=== PATIENT | male | born 1940 | race Caucasian/White ===

== ENCOUNTER → 2018-05-15 | Day surgery (SDC) | payer MEDICARE ==
[~2018-05-15] MED LIST: LIDOCAINE HCL 2% LOCAL INJ 5 ML SDV VIAL INJ ONE; PROPOFOL IV EMULSION 10 MG/ML 20 ML VIAL ONE
[2018-05-15 12:20] LABS: BASOPHILS % 0.6 % (0.0-1.0); EOSINOPHILS % 0.4 % (0.0-6.0); HEMATOCRIT 42.7 % (38.2-49.6); HEMOGLOBIN 14.5 g/dL (14.0-18.0); LYMPHOCYTES # (AUTO) 2.3 (1.0-3.2); MEAN CORPUSCULAR HEMOGLOBIN 30.2 pg (28-32); MONOCYTES # (AUTO) 0.6 (0.2-0.8); MONOCYTES % 7.9 % (4.4-11.3); NEUTROPHILS # (AUTO) 4.3 (2.1-6.9); NEUTROPHILS % 58.8 % (38.7-80.0); PLATELET COUNT 259 x10e3/uL (140-360); RED CELL DISTRIBUTION WIDTH 12.3 % (11.7-14.4)
[2018-05-15 13:35] VITALS: BP 125/81
== END | disposition home or self-care (01) ==
LOC: OR 11:37
PROVIDERS: ATTEND Internal Medicine
DX: K29.00 Acute gastritis without bleeding (principal); K21.0 Gastro-esophageal reflux disease with esophagitis; K57.30 Diverticulosis of large intestine without perforation or abscess without bleeding; K64.0 First degree hemorrhoids; K59.00 Constipation, unspecified; K22.8 Other specified diseases of esophagus; I10 Essential (primary) hypertension
CPT/HCPCS: 36415; 85025; J2001

== ENCOUNTER 2019-11-11 20:36 | Inpatient (IN) | payer MEDICARE, OTHER ==
[~2019-11-11] VITALS: Ht 172.7 cm; Wt 59.0 kg
--- NOTE | 2019-11-11 21:02 | Emergency Department Note ---
History of Present Illnes History of Present Illness Chief Complaint: Abdominal Complaints History of Present Illness This is a 79 year old male BRIGHT RED BLOOD IN STOOL ONSET TODAY AT 1730; PT REPORTS HAVING X2 BM WITH BRIGHT RED BLOOD; PT STATES WHEN HE WENT TO HAVE A BM, HE DEVELOPED CHILLS AND FELT FATIGUED; PT DENIES CP OR SOB; DENIES ABDOMINAL PAIN . 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 Any updates have been documented here. Past Medical History Recent Fever: No Clinical Suspicion of Infectio: No New/Unexplained Change in Ment: No Other Medical History: INTESTINAL ULCERS Past Surgical History: T&A Other Surgery: LT HAND Social History Smoking Cessation: Never Smoker Alcohol Use: None Family History Family history of heart diseas: No Other Last Tetanus: UNK Review of Systems Review of Systems Constitutional: Reports no symptoms EENTM: Reports no symptoms Cardiovascular: Reports no symptoms Respiratory: Reports no symptoms Gastrointestinal: Reports as per HPI Genitourinary: Reports no symptoms Musculoskeletal: Reports no symptoms Integumentary: Reports no symptoms Neurological: Reports no symptoms Psychological: Reports no symptoms Endocrine: Reports no symptoms Hematological/Lymphatic: Reports no symptoms Physical Exam Related Data Allergies: Coded Allergies: No Known Allergies (Unverified , 05/15/18) Triage Vital Signs Vital Signs Date Time Temp Pulse Resp B/P (MAP) Pulse Ox O2 Delivery O2 Flow Rate FiO2 11/11/19 20:44 98.4 78 16 122/93 98 Vital signs reviewed: Yes Physical Exam CONSTITUTIONAL Constitutional: Present well-developed, Present well-nourished HENT HENT: Present normocephalic, Present atraumatic, Present oropharynx clear/moist, Present nose normal HENT L/R: Present left ext ear normal, Present right ext ear normal EYES Eyes: Reports PERRL, Reports conjunctivae normal NECK Neck: Present ROM normal PULMONARY Pulmonary: Present effort normal, Present breath sounds normal CARDIOVASCULAR Cardiovascular: Present regular rhythm, Present heart sounds normal, Present capillary refill normal, Present normal rate GASTROINTESTINAL Abdominal: Present soft, Present nontender, Present bowel sounds normal GENITOURINARY Genitourinary: Present exam deferred SKIN Skin: Present warm, Present dry MUSCULOSKELETAL Musculoskeletal: Present ROM normal NEUROLOGICAL Neurological: Present alert, Present oriented x 3, Present no gross motor or sensory deficits PSYCHOLOGICAL Psychological: Present mood/affect normal, Present judgement normal Results Laboratory Laboratory Laboratory Tests Test 11/11/19 21:11 White Blood Count 9.92 x10e3/uL (4.8-10.8) Red Blood Count 3.69 x10e6/uL (4.3-5.7) Hemoglobin 10.7 g/dL (14.0-18.0) Hematocrit 33.2 % (38.2-49.6) Mean Corpuscular Volume 90.0 fL (81-99) Mean Corpuscular Hemoglobin 29.0 pg (28-32) Mean Corpuscular Hemoglobin Concent 32.2 g/dL (31-35) Red Cell Distribution Width 12.9 % (11.7-14.4) Platelet Count 277 x10e3/uL (140-360) Neutrophils (%) (Auto) 71.5 % (38.7-80.0) Lymphocytes (%) (Auto) 18.0 % (18.0-39.1) Monocytes (%) (Auto) 8.3 % (4.4-11.3) Eosinophils (%) (Auto) 1.2 % (0.0-6.0) Basophils (%) (Auto) 0.5 % (0.0-1.0) Neutrophils # (Auto) 7.1 (2.1-6.9) Lymphocytes # (Auto) 1.8 (1.0-3.2) Monocytes # (Auto) 0.8 (0.2-0.8) Eosinophils # (Auto) 0.1 (0.0-0.4) Basophils # (Auto) 0.1 (0.0-0.1) Absolute Immature Granulocyte (auto 0.05 x10e3/uL (0-0.1) Prothrombin Time 13.9 seconds (11.9-14.5) Prothromb Time International Ratio 1.01 Activated Partial Thromboplast Time 26.9 seconds (23.8-35.5) Sodium Level 140 mmol/L (136-145) Potassium Level 4.6 mmol/L (3.5-5.1) Chloride Level 108 mmol/L (98-107) Carbon Dioxide Level 24 mmol/L (22-29) Anion Gap 12.6 mmol/L (8-16) Blood Urea Nitrogen 24 mg/dL (7-26) Creatinine 1.60 mg/dL (0.72-1.25) Estimat Glomerular Filtration Rate 42 ML/MIN (60-) BUN/Creatinine Ratio 15 (6-25) Glucose Level 160 mg/dL (74-118) Calcium Level 8.5 mg/dL (8.4-10.2) Total Bilirubin 0.3 mg/dL (0.2-1.2) Aspartate Amino Transf (AST/SGOT) 16 IU/L (5-34) Alanine Aminotransferase (ALT/SGPT) 13 IU/L (0-55) Alkaline Phosphatase 58 IU/L (40-150) Total Protein 6.1 g/dL (6.5-8.1) Albumin 3.0 g/dL (3.5-5.0) Globulin 3.1 g/dL (2.3-3.5) Albumin/Globulin Ratio 1.0 (0.8-2.0) Lab results reviewed: Yes Laboratory comments PT MILDLY ANEMIC Procedures 12 Lead ECG Interpretation ECG Interpretation : ECG: ECG 1 Manager Economic: Interpreted by ED physician Date: Nov 11, 2019 Time: 20:46 Rhythm: sinus rhythm Rate: normal BPM: 77 QRS axis: normal ST segments normal: Yes T waves normal: Yes Clinical Impression: non-specific ECG Additional Comments SHORT OK INTERVAL Assessment & Plan Medical Decision Making [facility] PT WITH BRIGHT RED BLOOD PER RECTUM TWICE SINE 530 PM, HAS H/O BLEEDING IN PAST AND STATES "THEY FOUND ULCERS IN MY INTESTINES LAST TIME" CBC, CMP, PT/PTT, TYPE AND SCREEN ORDERED TO EVAL FOR COAGULOPATHY, ANEMIA, ELECTROLYTE ABNORMALITY I SPOKE WITH DR FLORES, ADMIT INPATIENT, I SPOKE WITH DR Sumanth FARIAS FOR GI CONSULT Assessment & Plan Final Impression: (1) Lower GI bleed Last Vital Signs Date Time Temp Pulse Resp B/P (MAP) Pulse Ox O2 Delivery O2 Flow Rate FiO2 11/11/19 20:44 98.4 78 16 122/93 98 Home Meds No Active Prescriptions or Reported Meds ISSAC QUEZADA MD Nov 11, 2019 21:02
[2019-11-11 21:33] LABS: BASOPHILS # (AUTO) 0.1 (0.0-0.1); BASOPHILS % 0.5 % (0.0-1.0); EOSINOPHILS # (AUTO) 0.1 (0.0-0.4); EOSINOPHILS % 1.2 % (0.0-6.0); HEMATOCRIT 33.2 % (38.2-49.6); HEMOGLOBIN 10.7 g/dL (14.0-18.0); LYMPHOCYTES # (AUTO) 1.8 (1.0-3.2); MEAN CORPUSCULAR HGB CONC 32.2 g/dL (31-35); MONOCYTES # (AUTO) 0.8 (0.2-0.8); MONOCYTES % 8.3 % (4.4-11.3); NEUTROPHILS # (AUTO) 7.1 (2.1-6.9); NEUTROPHILS % 71.5 % (38.7-80.0); PLATELET COUNT 277 x10e3/uL (140-360); RED BLOOD COUNT 3.69 x10e6/uL (4.3-5.7); RED CELL DISTRIBUTION WIDTH 12.9 % (11.7-14.4)
[2019-11-11 21:38] LABS: INR 1.01; PROTHROMBIN TIME 13.9 seconds (11.9-14.5)
[2019-11-11 21:39] LABS: PARTIAL THROMBOPLASTIN TIME 26.9 seconds (23.8-35.5)
[2019-11-11 21:48] LABS: ANION GAP 12.6 mmol/L (8-16); CALCIUM 8.5 mg/dL (8.4-10.2); CREATININE, SERUM 1.6 mg/dL (0.72-1.25); POTASSIUM 4.6 mmol/L (3.5-5.1)
[2019-11-12] VITALS (9 sets, daily range): BP systolic 116–124; BP diastolic 62–78
--- NOTE | 2019-11-12 02:20 | NUR ---
Pt admitted to room 299 via stretcher from home. Pt alert and orient to name, hospital, and diagnosis: lower GIB. Pt came after large bloody stool at home. Pt has s/t to left elbow, Pt stated he caught himself from falling and hit his arm. Steady gait. Last BM 11/10 with blood. Denies dysuria, urine clear. Pt has on graduated stockings. Pt informed need of stool collected, specimen container in bathroom. Pt oriented to room, call light within reach. Will continue to monitor.
[2019-11-12] MEDS: SODIUM CHLORIDE 0.9% 1000ML 1,000 ML IV SCH ×3 (03:30→17:37)
--- NOTE | 2019-11-12 05:53 | NUR ---
H&P cc: blood loss HPI: 79yoM, PCP , developed bloody stool. Has hx, and sees . Endoscopy planned. PMH: GIB PSHx: endoscopy, bladder Allergies; see emr FH/HS; single; no cigs meds; see MAR ROS; no f/c/s/N/V/D/DAVID/cp/sob/skin rash/vision changes/confusion v/s; revd PE tired appearing anicteric ns1s2 mod bs soft nt nd no e/t skin dry n. affect labs/meds revd A/P: GIB-PPI; GI eval Mild anemia HUMZA- IVF Low BMI- check prealbumin Prop; scd; ppi dispO; f/u endoscopy Luis Messer MD, PhD.
[2019-11-12] MEDS ORDERED: ONDANSETRON HCL INJ 2MG/ML 2ML 2 MG/ML VIAL IV PRN (06:00)
[2019-11-12 06:32] LABS: HEMOGLOBIN 9.2 g/dL (14.0-18.0)
[2019-11-12 07:00] LABS: ANION GAP 10.6 mmol/L (8-16); CALCIUM 8.2 mg/dL (8.4-10.2); CREATININE, SERUM 1.37 mg/dL (0.72-1.25); POTASSIUM 4.6 mmol/L (3.5-5.1)
--- NOTE | 2019-11-12 07:00 | NUR ---
BEDSIDE SHIFT REPORT RECEIVED FROM THE BRUSH POLISHER RN. EDUCATED PT ABOUT FALL PRECAUTIONS. PT VERBALIZED UNDERSTANDING. CALL LIGHT WITH IN EASY REACH. INSTRUCTED PT TO USE CALL LIGHT FOR ALL THE NEEDS. BED IS LOW AND LOCKED. SIDE RAILS X2. PT DENIES NEEDS AT THIS TIME.
[2019-11-12] MEDS ORDERED: HEPARIN SOD (PORCINE) 1000 UNIT/ML SDV ONE (08:06)
[2019-11-12] MEDS: PANTOPRAZOLE 40 MG 10ML VIAL IV SCH ×2 (09:26→17:37)
[2019-11-12 12:14] LABS: HEMATOCRIT 26.2 % (38.2-49.6); HEMOGLOBIN 8.4 g/dL (14.0-18.0)
--- NOTE | 2019-11-12 12:30 | NUR ---
PT OFF UNIT FOR PROCEDURE IN SAFE CONDITION.
--- NOTE | 2019-11-12 14:00 | NUR ---
PT BACK TO UNIT AFTER PROCEDURE. CLEAR LIQUID DIET TOLERATED PER THE OR REPORT. PT IS AAOX4. DENIES NEEDS AT THIS TIME.
--- NOTE | 2019-11-12 14:35 | NUR ---
WOUND CARE CONSULT FOR 79 YO MALE HX OF LOWER GI BLEED ,FALL ANASTACIA 18 0N CONSERVATIVE PUP STATUS AND INTERVENTIONS AND VISCO MATTRESS LABS: WBC-9.92 HGB_10.7 GLUCOSE-115 SKIN ASSESSMENT COMPLETE PATIENT PRESENTS WITH APPROXIMATED SKIN TEAR TO LEFT ARM 2CM IN LENGTH RECOMMENDATIONS: NURSING TO CONTINUE TO MAINTAIN CONSERVATIVE PUP STATUS AND INTERVENTIONS AND VISCO MATTRESS NURSING TO CONTINUE TO ASSIST PATIENT OUT OF BED FOR MEALS AND MUCH TOLERATED NURSING TO CONTINUE TO ASSIST PATIENT NEEDED WITH MEALS AND NUTRITIONAL SUPPLEMENTS TO ENSURE PROPER REQUIREMENTS FOR HEALING NURSING TO CONTINUE TO OFFLOAD FEET AND HEELS NEEDED WITH PILLOW SUSPENSION WHEN IN BED NURSING TO MAINTAIN LEFT ARM SKIN TEAR STERI STRIPS COVERED WITH SILVER COLLAGEN AND TEGADERM DRESSING KEEP DRESSING IN PLACE Addendum: 11/12/19 at 1440 by Ermias Guardado RN Amended: Links added.
--- NOTE | 2019-11-12 15:15 | NUR ---
PT OFF UNIT FOR PROCEDURE IN SAFE CONDITION.
--- NOTE | 2019-11-12 17:30 | NUR ---
PT BACK TO THE UNIT AFTER PROCEDURE. PT DENIES NEEDS AT THIS TIME.
[2019-11-12 18:49] LABS: HEMATOCRIT 27.5 % (38.2-49.6); HEMOGLOBIN 8.8 g/dL (14.0-18.0)
[2019-11-12] MEDS ORDERED: MIDAZOLAM HCL 2 MG/2 ML VIAL ONE (19:14)
--- NOTE | 2019-11-12 19:20 | NUR ---
BEDSIDE SHIFT REPORT GIVEN TO THE PUBLIC AFFAIRS SPECIALIST RN. PT DENIED FURTHER NEEDS.
[2019-11-12] MEDS ORDERED: LIDOCAINE HCL 2% LOCAL INJ 5 ML SDV VIAL INJ ONE (19:26)
--- NOTE | 2019-11-12 21:54 | Diagnostic Imaging Report ---
Tagged-RBC GI Bleed Study Clinical information: 79-year-old male with lower GI bleeding. Had two bright red bowel movements yesterday. Discussion: The patient's own red blood cells were labeled with 24.1 mCi of technetium-99m pertechnetate using the in vitro method (UltraTag). Dynamic images of the abdomen were obtained through 60 minutes. Distribution of tracer activity appears physiologic throughout the abdomen. No abnormal accumulation of tracer is seen within the gastrointestinal lumen. Impression: No scan evidence of active gastrointestinal bleeding at this time. Signed by: Dr. Candy Lu M.D. on 11/12/2019 9:51 PM
[2019-11-13] VITALS (8 sets, daily range): BP systolic 111–143; BP diastolic 54–88
[2019-11-13] MEDS: SODIUM CHLORIDE 0.9% 1000ML 1,000 ML IV SCH ×3 (01:30→15:15)
[2019-11-13 01:46] LABS: HEMATOCRIT 22.9 % (38.2-49.6); HEMOGLOBIN 7.5 g/dL (14.0-18.0)
[2019-11-13 05:47] LABS: HEMATOCRIT 22.9 % (38.2-49.6); HEMOGLOBIN 7.4 g/dL (14.0-18.0)
--- NOTE | 2019-11-13 07:15 | NUR ---
Pt lying in bed, no acute distress noted. Report given to morning nurse.
--- NOTE | 2019-11-13 08:17 | NUR ---
Im- progress note O/N see below ROS; no f/c/s/N/V/D/DAVID/cp/sob/skin rash/vision changes/confusion v/s; revd PE tired appearing anicteric ns1s2 mod bs soft nt nd no e/t skin dry n. affect labs/meds revd A/P: GIB-PPI; GI eval EGD= Diverticulosis+Gastritis+Hiatal Hernia.- IV ppi Mild anemia HUMZA- IVF Low BMI- check prealbumin Prop; scd; ppi dispO; f/u endoscopy - endoscopy shows as noted above; check vitB12 and iron levels. Give 2 units PRBC. Luis Messer MD, PhD.
[2019-11-13] MEDS ORDERED: ACETAMINOPHEN 325 MG TAB PO PRN (08:30)
--- NOTE | 2019-11-13 08:30 | NUR ---
NEW ORDER RECEIVED FROM DR. FLORES FOR BLOOD TRANSFUSION. INFORMED THE SAME TO PT. PT LIKES TO DISCUSS WITH FAMILY BEFORE MAKING ANY DECISION. PT WILL UPDATE AFTER FEW HOURS. INFORMED THE SAME TO DR. FLORES.
[2019-11-13 09:04] LABS: FERRITIN 19.7 ng/mL (21.81-274.66)
[2019-11-13] MEDS ORDERED: SODIUM CHLORIDE 0.9% 250ML 250 ML IV ONE (09:25)
[2019-11-13] MEDS: PANTOPRAZOLE 40 MG 10ML VIAL IV SCH ×2 (09:38→15:55)
[2019-11-13 13:05] LABS: HEMATOCRIT 25.6 % (38.2-49.6); HEMOGLOBIN 8.3 g/dL (14.0-18.0)
--- NOTE | 2019-11-13 15:40 | NUR ---
Nutrition Screen Note RD Recommendation for Physician: -Continue current diet as ordered -If PO intake <50% of meals, offer Ensure Enlive Plan of Care: RD following, monitoring for tolerance and adequacy Nutrition reason for involvement: Nutrition Risk Trigger Primary Diagnose(s): lower GI bleed PMH: GIB Ht: 68 in Wt:130 lb BMI: 19.8 kg/m2 IBW:[address] Assessment: (11/13/19) Chart reviewed. Labs and meds reviewed. Pt is a 79 year old male admitted with lower GI bleed. Pt was advanced to a GI soft diet today. Pt reported he is tolerating his diet and consumed 75% of his lunch tray. Prior to admission, pt stated he was eating most of his food that was prepared. Pt thinks he may have lost some weight and stated he usually weighs 135-136 lbs. Pt currently has a weight of 130 lbs in chart. If PO intake <50% of meals, offer Ensure Enlive. Will continue to monitor. Current Diet: GI soft diet Malnutrition Evaluation (11/13/19) The patient does not meet criteria for a specified degree of malnutrition at this time. Will re-evaluate at follow-up as appropriate. Diet Education Needs Assessment: RD is available for diet education as needed Nutrition Care Level: low Signed: Jonna Arias, ROSSANA, LD
[2019-11-13] MEDS ORDERED: SODIUM CHLORIDE 0.9% 250ML 250 ML ONE (16:04)
--- NOTE | 2019-11-13 19:00 | NUR ---
2 UNITS OF BLOOD TRANSFUSION COMPLETED DURING THE SHIFT. PT TOLERATED WELL. PT DENIED FURTHER NEEDS.
--- NOTE | 2019-11-13 19:20 | NUR ---
BEDSIDE SHIFT REPORT GIVEN TO THE ASSOCIATE PROJECT MANAGER RN. PT DENIED FURTHER NEEDS.
[2019-11-14 01:01] VITALS: BP 135/69
[2019-11-14 05:13] VITALS: BP 111/68
[2019-11-14] MEDS ORDERED: MULTIVITAMINS1 EAC6 PO (05:44)
[2019-11-14] MEDS ORDERED: VITAMIN B-121000 MCG PO (05:44)
[2019-11-14] MEDS ORDERED: PANTOPRAZOLE SO40 MG PO (05:44)
[2019-11-14] MEDS ORDERED: CYANOCOBALAMIN INJ 1,000 MCG/ML VIAL IM ONE (05:45)
--- NOTE | 2019-11-14 05:48 | NUR ---
D/C SUmmary Principal Dx: GIB-PPI; GI eval Diverticulosis Gastritis Hiatal Hernia.- IV ppi VitB12 deficiency anemia HUMZA- IVF Low BMI- check prealbumin Secondary Dx: Prop; scd; ppi dispO; f/u endoscopy 11-12 endoscopy shows as noted above; check vitB12 and iron levels. Give 2 units PRBC. VItB12 Deficiency- give IM shot now and start PO vit B12. Check H/H and GFR PRIOR to d/c d/c home stable f/u pcp 2 days and GI 1 week d/c>35mins Luis Messer MD, PhD.
[2019-11-14] MEDS: SODIUM CHLORIDE 0.9% 1000ML 1,000 ML IV SCH ×2 (06:04→07:15)
--- NOTE | 2019-11-14 06:45 | NUR ---
patient endorsed to next shift for continuity of care.
--- NOTE | 2019-11-14 06:50 | NUR ---
RECEIVED BEDSIDE SHIFT REPORT FROM OFF GOING NURSE. PATIENT IS RESTING IN BED. NO ACUTE DISTRESS NOTED. CALL LIGHT WITHIN REACH. BED IN THE LOWEST POSITION.
[2019-11-14 06:54] LABS: HEMATOCRIT 29.5 % (38.2-49.6); HEMOGLOBIN 9.7 g/dL (14.0-18.0)
[2019-11-14 07:11] LABS: ANION GAP 8.7 mmol/L (8-16); CALCIUM 8.1 mg/dL (8.4-10.2); CREATININE, SERUM 1.47 mg/dL (0.72-1.25); POTASSIUM 3.7 mmol/L (3.5-5.1)
[2019-11-14 07:52] VITALS: BP 123/67
[2019-11-14 08:29] VITALS: BP 123/67
[2019-11-14] MEDS ORDERED: CYANOCOBALAMIN 1,000 MCG TAB PO SCH (09:00)
[2019-11-14] MEDS: PANTOPRAZOLE 40 MG 10ML VIAL IV SCH (09:24)
--- NOTE | 2019-11-14 10:08 | NUR ---
RECEIVED DC ORDER FROM MD. PATIENT IS IN STABLE CONDITION. IV LINE TO LEFT ANTECUBITAL DISCONTINUED WITH TIP INTACT, PRESSURE APPLIED TO SITE, NO BLEEDING NOTED. DISCHARGE TEACHING PROVIDED TO PATIENT, HE VERBALIZED UNDERSTANDING. DISCHARGE FOLDER WITH PRESCRIPTIONS ON HAND. ALL PERSONAL ITEMS ON HAND. PATIENT ACCOMPANIED TO PRIVATE AUTO VIA WHEELCHAIR BY STAFF.
== END 2019-11-14 10:08 | disposition home or self-care (01) | DRG 378 ==
LOC: ER 20:36 → ERHOLD 23:11 → MED/SURG3 11-12 02:23
PROVIDERS: ADMIT Internal Medicine; ATTEND Internal Medicine
PROC: 0DJD8ZZ Inspection of Lower Intestinal Tract, Via Natural or Artificial Opening Endoscopic (ICD-10-PCS; 2019-11-11)
PROC: 30233N1 Transfusion of Nonautologous Red Blood Cells into Peripheral Vein, Percutaneous Approach (ICD-10-PCS; principal; 2019-11-13)
DX: K57.31 Diverticulosis of large intestine without perforation or abscess with bleeding (principal); N17.9 Acute kidney failure, unspecified; K46.9 Unspecified abdominal hernia without obstruction or gangrene; D51.9 Vitamin B12 deficiency anemia, unspecified; K29.70 Gastritis, unspecified, without bleeding; Z11.59 Encounter for screening for other viral diseases
CPT/HCPCS: 36415; 43239; 45378; 78278; 80048; 80053; 82270; 82607; 82728; 83540; 84134; 84466; 85014; 85018; 85025; 85610; 85730; 86850; 86900; 86920; 87635; 88305; 88312; 93005; 96361; 99251; 99284; A9512; J1644; J2001; J2250; J3420; J7030; J7050; P9016

== ENCOUNTER → 2020-02-11 | Day surgery (SDC) | payer MEDICARE, OTHER ==
[2020-02-08 11:06] LABS: BASOPHILS % 0.5 % (0.0-1.0); EOSINOPHILS # (AUTO) 0.1 (0.0-0.4); HEMATOCRIT 38.8 % (38.2-49.6); HEMOGLOBIN 12.3 g/dL (14.0-18.0); LYMPHOCYTES # (AUTO) 1.8 (1.0-3.2); LYMPHOCYTES % 32.2 % (18.0-39.1); MEAN CORPUSCULAR HEMOGLOBIN 26.5 pg (28-32); MEAN CORPUSCULAR HGB CONC 31.7 g/dL (31-35); MEAN CORPUSCULAR VOLUME 83.6 fL (81-99); MONOCYTES # (AUTO) 0.7 (0.2-0.8); MONOCYTES % 11.8 % (4.4-11.3); NEUTROPHILS # (AUTO) 2.9 (2.1-6.9); NEUTROPHILS % 53.1 % (38.7-80.0); PLATELET COUNT 264 x10e3/uL (140-360); RED BLOOD COUNT 4.64 x10e6/uL (4.3-5.7); RED CELL DISTRIBUTION WIDTH 15.3 % (11.7-14.4)
[~2020-02-11] MED LIST changes: +FENTANYL CITRATE/PF 100MCG/2 ML INJ ONE; +IRON PILLS; +MULTIVITAMINS1 EAC6 PO; +PANTOPRAZOLE SO40 MG PO; +VITAMIN B-121000 MCG PO
[2020-02-11 11:40] VITALS: BP 117/63
== END | disposition home or self-care (01) ==
LOC: OR 08:45
PROVIDERS: ATTEND Internal Medicine
DX: K57.30 Diverticulosis of large intestine without perforation or abscess without bleeding (principal); K63.5 Polyp of colon; K64.0 First degree hemorrhoids; Z01.812 Encounter for preprocedural laboratory examination; Z11.59 Encounter for screening for other viral diseases
CPT/HCPCS: 36415; 45380; 85025; 88305; J2001; J2704; J3010; U0002

== ENCOUNTER → 2022-09-06 | Day surgery (SDC) | payer MEDICARE ==
[2022-09-03 11:31] LABS: BASOPHILS % 0.5 % (0.0-1.0); EOSINOPHILS # (AUTO) 0.1 (0.0-0.4); EOSINOPHILS % 1.4 % (0.0-6.0); HEMATOCRIT 35.8 % (38.2-49.6); HEMOGLOBIN 11.2 g/dL (14.0-18.0); LYMPHOCYTES # (AUTO) 1.6 (1.0-3.2); MEAN CORPUSCULAR HEMOGLOBIN 26.7 pg (28-32); MEAN CORPUSCULAR HGB CONC 31.3 g/dL (31-35); MEAN CORPUSCULAR VOLUME 85.2 fL (81-99); MONOCYTES # (AUTO) 0.6 (0.2-0.8); MONOCYTES % 10.7 % (4.4-11.3); NEUTROPHILS # (AUTO) 3.2 (2.1-6.9); PLATELET COUNT 274 x10e3/uL (140-360); RED CELL DISTRIBUTION WIDTH 14.6 % (11.7-14.4)
[2022-09-03 11:50] LABS: ANION GAP 13.5 mmol/L (8-16); CALCIUM 8.8 mg/dL (8.4-10.2); CREATININE, SERUM 1.64 mg/dL (0.72-1.25); POTASSIUM 4.5 mmol/L (3.5-5.1)
[~2022-09-06] MED LIST changes: +CEFTRIAXONE 1 GM VIAL ONE; +DEXAMETHASONE SOD PHOS INJ 4 MG/ML SDV IV ONE; +EPHEDRINE SULFATE INJ 50 MG/ML VIAL IV ONE; +FINASTERIDE5 MG PO; +FLOMAX0.4 MG PO; +IOPAMIDOL 370 MG/ML 100 ML INFUS..BTL INJ ONE; +LACTATED RINGER'S 1,000 ML ONE; +POVIDONE IODINE 0.05% 0.05 % ML PO ONE; +PROPOFOL IV EMULSION 10 MG/ML 20 ML VIAL IV ONE; -PROPOFOL IV EMULSION 10 MG/ML 20 ML VIAL ONE; +SEVOFLURANE INHAL SOLN 250 ML PEN BTL INH ONE; +b12
[2022-09-06 07:32] VITALS: TEMP 97.6
[2022-09-06 08:26] VITALS: BP 132/79; PULSE 58; RESP 18; O2SAT 97
== END | disposition home or self-care (01) ==
LOC: OR 06:24
PROVIDERS: ATTEND Urology
DX: C67.2 Malignant neoplasm of lateral wall of bladder (principal); N32.3 Diverticulum of bladder; N39.0 Urinary tract infection, site not specified; Z01.810 Encounter for preprocedural cardiovascular examination; Z01.812 Encounter for preprocedural laboratory examination; Z01.818 Encounter for other preprocedural examination; Z20.822 Contact with and (suspected) exposure to COVID-19; Z79.899 Other long term (current) drug therapy
CPT/HCPCS: 0223U; 36415; 52214; 71046; 80048; 85025; 88305; 88307; 93005; J0696; J1100; J2001; J2704; J3010; J7121; Q9967

== ENCOUNTER 2022-09-29 13:32 | Emergency (ER) | payer MEDICARE ==
[~2022-09-29] VITALS: Ht 170.2 cm; Wt 60.3 kg
[~2022-09-29 13:32] MED LIST changes: -CEFTRIAXONE 1 GM VIAL ONE; -DEXAMETHASONE SOD PHOS INJ 4 MG/ML SDV IV ONE; -EPHEDRINE SULFATE INJ 50 MG/ML VIAL IV ONE; -FENTANYL CITRATE/PF 100MCG/2 ML INJ ONE; -IOPAMIDOL 370 MG/ML 100 ML INFUS..BTL INJ ONE; -LACTATED RINGER'S 1,000 ML ONE; -LIDOCAINE HCL 2% LOCAL INJ 5 ML SDV VIAL INJ ONE; -POVIDONE IODINE 0.05% 0.05 % ML PO ONE; -PROPOFOL IV EMULSION 10 MG/ML 20 ML VIAL IV ONE; -SEVOFLURANE INHAL SOLN 250 ML PEN BTL INH ONE
[2022-09-29 13:51] LABS: BASOPHILS # (AUTO) 0.1 (0.0-0.1); BASOPHILS % 0.8 % (0.0-1.0); EOSINOPHILS # (AUTO) 0.2 (0.0-0.4); EOSINOPHILS % 2.8 % (0.0-6.0); HEMATOCRIT 35.1 % (38.2-49.6); LYMPHOCYTES # (AUTO) 3.1 (1.0-3.2); LYMPHOCYTES % 36.9 % (18.0-39.1); MEAN CORPUSCULAR HEMOGLOBIN 26.3 pg (28-32); MEAN CORPUSCULAR HGB CONC 31.3 g/dL (31-35); MONOCYTES # (AUTO) 0.8 (0.2-0.8); MONOCYTES % 9.1 % (4.4-11.3); NEUTROPHILS # (AUTO) 4.2 (2.1-6.9); NEUTROPHILS % 50.3 % (38.7-80.0); PLATELET COUNT 275 x10e3/uL (140-360); RED BLOOD COUNT 4.18 x10e6/uL (4.3-5.7); RED CELL DISTRIBUTION WIDTH 14.5 % (11.7-14.4)
[2022-09-29] MEDS ORDERED: HEPARIN 25,000 UNIT DRIP IV ONE (13:55)
[2022-09-29] MEDS ORDERED: HEPARIN SOD (PORCINE) 5,000 UNIT/ML VIAL IV ONE (14:00)
[2022-09-29] MEDS ORDERED: CLOPIDOGREL BISULFATE 75 MG TAB PO ONE (14:00)
[2022-09-29] MEDS ORDERED: HEPARIN 25,000 UNIT/D5W 250ML 800 UNIT in DEXTROSE 5% 250ML 250 ML IV SCH (14:00)
[2022-09-29 14:07] LABS: ALBUMIN 3.6 g/dL (3.5-5.0); ALBUMIN/GLOBULIN RATIO 1.1 (0.8-2.0); ANION GAP 13.2 mmol/L (8-16); CALCIUM 9.1 mg/dL (8.4-10.2); CREATININE, SERUM 1.66 mg/dL (0.72-1.25); POTASSIUM 4.2 mmol/L (3.5-5.1)
[2022-09-29] MEDS ORDERED: NITROGLYCERIN 0.4 MG SUBL SL ONE (14:45)
[2022-09-29] MEDS ORDERED: FENTANYL CITRATE/PF 100MCG/2 ML INJ IV PRN (14:45)
[2022-09-29 14:53] VITALS: O2SAT 100
== END 2022-09-29 15:17 | disposition other institution (70) ==
LOC: ER 13:42
DX: R07.9 Chest pain, unspecified (principal); I21.3 ST elevation (STEMI) myocardial infarction of unspecified site; Z20.822 Contact with and (suspected) exposure to COVID-19
CPT/HCPCS: 36415; 71045; 80053; 84484; 85025; 99284; J1644; U0002

== ENCOUNTER 2022-10-11 07:23 | Emergency (ER) | payer MEDICARE ==
[~2022-10-11] VITALS: Ht 170.2 cm; Wt 60.3 kg
[2022-10-11 07:57] LABS: BASOPHILS # (AUTO) 0.1 (0.0-0.1); BASOPHILS % 0.9 % (0.0-1.0); EOSINOPHILS # (AUTO) 0.5 (0.0-0.4); EOSINOPHILS % 5.9 % (0.0-6.0); HEMATOCRIT 33.7 % (38.2-49.6); HEMOGLOBIN 10.6 g/dL (14.0-18.0); LYMPHOCYTES % 25.7 % (18.0-39.1); MEAN CORPUSCULAR HEMOGLOBIN 26.2 pg (28-32); MEAN CORPUSCULAR HGB CONC 31.5 g/dL (31-35); MEAN CORPUSCULAR VOLUME 83.2 fL (81-99); MONOCYTES # (AUTO) 0.7 (0.2-0.8); MONOCYTES % 9.2 % (4.4-11.3); NEUTROPHILS # (AUTO) 4.5 (2.1-6.9); NEUTROPHILS % 57.9 % (38.7-80.0); PLATELET COUNT 290 x10e3/uL (140-360); RED BLOOD COUNT 4.05 x10e6/uL (4.3-5.7); RED CELL DISTRIBUTION WIDTH 14.4 % (11.7-14.4)
[2022-10-11 08:09] LABS: INR 0.97; PROTHROMBIN TIME 13.4 seconds (11.9-14.5)
[2022-10-11 08:16] LABS: ALBUMIN 3.5 g/dL (3.5-5.0); ANION GAP 12.5 mmol/L (8-16); CREATININE, SERUM 1.61 mg/dL (0.72-1.25); POTASSIUM 4.5 mmol/L (3.5-5.1)
[2022-10-11] MEDS ORDERED: SODIUM CHLORIDE 0.9% 100 ML ONE (08:24)
[2022-10-11] MEDS ORDERED: IOPAMIDOL 370 MG/ML 100 ML INFUS..BTL INJ ONE (08:24)
[2022-10-11] MEDS ORDERED: SODIUM CHLORIDE 0.9% 1000ML 1,000 ML IV SCH (08:30)
[2022-10-11 11:22] VITALS: BP 135/74; PULSE 84; RESP 18; O2SAT 99
== END 2022-10-11 11:24 | disposition home or self-care (01) ==
LOC: ER 07:30
DX: K92.2 Gastrointestinal hemorrhage, unspecified (principal); I25.10 Atherosclerotic heart disease of native coronary artery without angina pectoris; Z20.822 Contact with and (suspected) exposure to COVID-19
CPT/HCPCS: 0223U; 36415; 74174; 80053; 85025; 85610; 99284; J7050; Q9967

== ENCOUNTER 2024-03-25 11:12 | Observation (INO) | payer MEDICARE ==
[~2024-03-25] VITALS: Ht 170.2 cm; Wt 60.3 kg
[~2024-03-25 11:12] MED LIST changes: -b12; +b12 PO
[2024-03-25 11:15] VITALS: TEMP 98.1
[2024-03-25] MEDS ORDERED: METOPROLOL TART25 MG PO (11:32)
[2024-03-25 11:46] LABS: BASOPHILS % 0.6 % (0.0-1.0); EOSINOPHILS # (AUTO) 0.1 (0.0-0.4); EOSINOPHILS % 1.1 % (0.0-6.0); HEMATOCRIT 41.6 % (38.2-49.6); HEMOGLOBIN 13.3 g/dL (14.0-18.0); LYMPHOCYTES # (AUTO) 1.5 (1.0-3.2); LYMPHOCYTES % 22.8 % (18.0-39.1); MEAN CORPUSCULAR HEMOGLOBIN 29.8 pg (28-32); MEAN CORPUSCULAR VOLUME 93.3 fL (81-99); MONOCYTES # (AUTO) 0.7 (0.2-0.8); MONOCYTES % 10.4 % (4.4-11.3); NEUTROPHILS # (AUTO) 4.2 (2.1-6.9); NEUTROPHILS % 64.8 % (38.7-80.0); PLATELET COUNT 173 x10e3/uL (140-360); RED BLOOD COUNT 4.46 x10e6/uL (4.3-5.7); WHITE BLOOD COUNT 6.53 x10e3/uL (4.8-10.8)
[2024-03-25 11:51] LABS: INR 0.95; PARTIAL THROMBOPLASTIN TIME 28.5 seconds (23.8-35.5); PROTHROMBIN TIME 13.2 seconds (11.9-14.5)
[2024-03-25 11:58] LABS: ALBUMIN 3.7 g/dL (3.5-5.0); ALBUMIN/GLOBULIN RATIO 1.3 (0.8-2.0); ANION GAP 14.5 mmol/L (8-16); BILIRUBIN,TOTAL 0.5 mg/dL (0.2-1.2); CALCIUM 9.3 mg/dL (8.4-10.2); CREATININE, SERUM 1.52 mg/dL (0.72-1.25); POTASSIUM 4.5 mmol/L (3.5-5.1); TOTAL PROTEIN 6.5 g/dL (6.5-8.1)
[2024-03-25 12:04] LABS: TROPONIN I 0.01 ng/mL (0-0.300)
[2024-03-25 12:27] LABS: MAGNESIUM 2.1 MG/DL (1.3-2.1)
[2024-03-25] MEDS ORDERED: ONDANSETRON HCL INJ 2MG/ML 2ML 2 MG/ML VIAL IV PRN (13:30)
[2024-03-25 15:54] LABS: CHOL/HDL RATIO 3.1 (3.9-4.7)
[2024-03-25 19:45] VITALS: PULSE 48; RESP 13
[2024-03-25 20:30] VITALS: BP 150/75; PULSE 52; RESP 17; TEMP 97.5; O2SAT 100
[2024-03-25 21:00] VITALS: BP 150/75; PULSE 52; RESP 17; TEMP 97.5; O2SAT 100
[2024-03-25] MEDS ORDERED: POLYETHYLENE GLYCOL 3350 17 GM PACK PO PRN (23:00)
[2024-03-25] MEDS ORDERED: ACETAMINOPHEN 325 MG TAB PO PRN (23:00)
[2024-03-25] MEDS ORDERED: HYDRALAZINE HCL 20 MG/ML VIAL IV PRN (23:00)
[2024-03-26] VITALS (8 sets, daily range): BP systolic 118–160; BP diastolic 69–85; PULSE 52–84; RESP 17–20; TEMP 97.3–98.1; O2SAT 96–100
[2024-03-26 01:23] LABS: CREATINE KINASE 81 IU/L (30-200)
[2024-03-26 01:53] LABS: TROPONIN I < 0.001 ng/mL (0-0.300)
[2024-03-26] MEDS ORDERED: ROSUVASTATIN CA10 MG PO (04:22)
[2024-03-26] MEDS ORDERED: ASPIRIN81 MG PO (04:22)
[2024-03-26 06:29] LABS: BASOPHILS % 0.5 % (0.0-1.0); EOSINOPHILS # (AUTO) 0.2 (0.0-0.4); EOSINOPHILS % 2.6 % (0.0-6.0); HEMATOCRIT 40.9 % (38.2-49.6); HEMOGLOBIN 13.2 g/dL (14.0-18.0); LYMPHOCYTES # (AUTO) 1.5 (1.0-3.2); LYMPHOCYTES % 26.1 % (18.0-39.1); MEAN CORPUSCULAR HEMOGLOBIN 29.9 pg (28-32); MEAN CORPUSCULAR HGB CONC 32.3 g/dL (31-35); MEAN CORPUSCULAR VOLUME 92.5 fL (81-99); MONOCYTES # (AUTO) 0.6 (0.2-0.8); MONOCYTES % 10.9 % (4.4-11.3); NEUTROPHILS # (AUTO) 3.4 (2.1-6.9); NEUTROPHILS % 59.6 % (38.7-80.0); PLATELET COUNT 169 x10e3/uL (140-360); RED BLOOD COUNT 4.42 x10e6/uL (4.3-5.7); RED CELL DISTRIBUTION WIDTH 12.8 % (11.7-14.4); WHITE BLOOD COUNT 5.78 x10e3/uL (4.8-10.8)
[2024-03-26 07:14] LABS: ALBUMIN 3.3 g/dL (3.5-5.0); ALBUMIN/GLOBULIN RATIO 1.1 (0.8-2.0); ANION GAP 14.1 mmol/L (8-16); BILIRUBIN,TOTAL 0.7 mg/dL (0.2-1.2); CALCIUM 9.1 mg/dL (8.4-10.2); CHOL/HDL RATIO 3.5 (3.9-4.7); CREATININE, SERUM 1.44 mg/dL (0.72-1.25); POTASSIUM 4.1 mmol/L (3.5-5.1); TOTAL PROTEIN 6.3 g/dL (6.5-8.1)
[2024-03-26 07:47] LABS: CREATINE KINASE 68 IU/L (30-200)
[2024-03-26 07:56] LABS: TROPONIN I < 0.001 ng/mL (0-0.300)
[2024-03-26] MEDS: CLOPIDOGREL BISULFATE 75 MG TAB PO SCH (08:32)
[2024-03-26] MEDS: ASPIRIN 81 MG ENTERIC COATED PO SCH (08:32)
[2024-03-26] MEDS: DOCUSATE SODIUM 100 MG CAP PO SCH (08:32)
== END 2024-03-26 18:57 | disposition home or self-care (01) ==
LOC: ER 12:06 → ERHOLD 13:30 → MED/SURG3 20:00
PROVIDERS: ADMIT Internal Medicine; ATTEND Internal Medicine
DX: R07.89 Other chest pain (principal); I25.10 Atherosclerotic heart disease of native coronary artery without angina pectoris; Z95.5 Presence of coronary angioplasty implant and graft; K21.9 Gastro-esophageal reflux disease without esophagitis; R00.1 Bradycardia, unspecified
CPT/HCPCS: 36415 ×2; 71045; 74176; 80053 ×2; 80061 ×2; 82550 ×2; 83036; 83690; 83735; 84100; 84443; 84484 ×2; 85025 ×2; 85610; 85730; 93005; 93306; 94799; 97161; 99285; G0378 ×2

== ENCOUNTER 2024-12-10 09:15 | Emergency (ER) | payer MEDICARE ==
[~2024-12-10] VITALS: Ht 170.2 cm; Wt 59.9 kg
[~2024-12-10 09:15] MED LIST changes: +ASPIRIN81 MG PO; +METOPROLOL TART25 MG PO; +ROSUVASTATIN CA10 MG PO
[2024-12-10 09:25] VITALS: PULSE 49; RESP 14; TEMP 97.5
[2024-12-10] MEDS ORDERED: SODIUM CHLORIDE FLUSH 10 ML SYR IV PRN (09:45)
[2024-12-10 09:55] LABS: BASOPHILS % 0.6 % (0.0-1.0); EOSINOPHILS % 2.2 % (0.0-6.0); LYMPHOCYTES % 24.2 % (18.0-39.1); MONOCYTES % 9.6 % (4.4-11.3); NEUTROPHILS % 63.2 % (38.7-80.0); RED CELL DISTRIBUTION WIDTH 12.7 % (11.7-14.4)
[2024-12-10 10:26] LABS: EST GLOMERULAR FILTRATION RATE 42.0 ML/MIN (>=60)
[2024-12-10 10:28] LABS: INR 0.97
[2024-12-10 13:01] LABS: EPITHELIAL CELLS,URINE FEW /LPF; LEUKOCYTE ESTERASE ,URINE NEGATIVE (NEGATIVE); PROTEIN,URINE DIPSTICK TRACE (NEGATIVE); URINE UROBILINOGEN 1 mg/dL (0.2 - 1)
[2024-12-10 13:45] VITALS: BP 154/77; PULSE 47; RESP 14; TEMP 98.3; O2SAT 98
== END 2024-12-10 14:01 | disposition home or self-care (01) ==
LOC: ER 09:29
DX: H53.9 Unspecified visual disturbance (principal); I10 Essential (primary) hypertension; I25.10 Atherosclerotic heart disease of native coronary artery without angina pectoris; E78.5 Hyperlipidemia, unspecified
CPT/HCPCS: 36415; 70450; 71045; 80053; 81001; 83880; 84484; 85025; 85610; 85730; 93005; 94760; 99284